=== PATIENT | male | born 1950 | race Caucasian/White ===

== ENCOUNTER 2018-03-05 09:10 | Outpatient (CLI) | payer OTHER, MEDICARE, SELFPAY ==
--- NOTE | 2018-03-05 09:08 | DI.REPORT_ITS ---
SYMPTOM/DIAGNOSIS: FX F/U LEFT WRIST: PA and lateral views were performed. Comparison is made with 12 February 2018 The splint has been removed. There has been no change in alignment of the previously noted comminuted intra-articular fracture of the distal radius and ulnar styloid fracture. There has been continued healing.
== END 2018-03-05 09:11 ==
PROVIDERS: Visit Provider Physician Assistant Surgical
DX: S52.512D Displaced fracture of left radial styloid process, subsequent encounter for closed fracture with routine healing (principal); S52.612D Displaced fracture of left ulna styloid process, subsequent encounter for closed fracture with routine healing
CPT/HCPCS: 73100

== ENCOUNTER 2018-04-08 16:33 | Outpatient (CLI) | payer OTHER, SELFPAY ==
--- NOTE | 2018-04-04 09:28 | DI.RAD_ITS ---
SYMPTOM/DIAGNOSIS: F/U FRACTURES LEFT WRIST: Two views. Comparison is made with 03/05/18. There has been continued healing of the intra-articular fracture of the distal left radius. The fracture lines appear less well visualized. The ulnar styloid process fracture appears stable. No new fractures or dislocations are seen. The bones appear osteopenic likely from decreased use. The soft tissues are unremarkable. IMPRESSION: Continued healing of the distal left radial and ulnar fractures.
== END 2018-04-08 16:53 ==
PROVIDERS: Visit Provider Orthopaedic Surgery
DX: S52.512D Displaced fracture of left radial styloid process, subsequent encounter for closed fracture with routine healing (principal); S52.612D Displaced fracture of left ulna styloid process, subsequent encounter for closed fracture with routine healing
CPT/HCPCS: 73100

== ENCOUNTER 2018-05-16 09:48 | Outpatient (CLI) | payer OTHER, SELFPAY ==
--- NOTE | 2018-05-16 09:42 | DI.RAD_ITS ---
SYMPTOM/DIAGNOSIS: F/U FX LEFT WRIST: Two views were obtained. The previously noted healing fractures of the distal radius and ulnar styloid are again seen with no gross interval change in alignment in comparison with examination of 04/04.
== END 2018-05-16 10:08 ==
PROVIDERS: Visit Provider Orthopaedic Surgery
DX: S52.512D Displaced fracture of left radial styloid process, subsequent encounter for closed fracture with routine healing (principal); S52.612D Displaced fracture of left ulna styloid process, subsequent encounter for closed fracture with routine healing
CPT/HCPCS: 73100

== ENCOUNTER 2020-06-21 15:18 | Emergency (ER) | payer MEDICARE, MEDICAID, SELFPAY ==
[2020-06-21 15:24] VITALS: BP 142/81; PULSE 80; RESP 14; TEMP 36.4; O2SAT 98
--- NOTE | 2020-06-21 15:30 | DI.RAD_ITS ---
EXAM: XR HAND LT COMPLETE CLINICAL HISTORY: fall TECHNIQUE: COMPARISON: No exams were available for comparison FINDINGS: Five views were obtained. There are mild degenerative changes of the joints of the hand and wrist. There is no evidence of acute fracture. Note is made of a very prominent ulnar styloid and ulnar plus variance at the wrist. Clinical correl ation requested regarding impingement at this site. IMPRESSION: RADIATION DOSE DELIVERED: Total DLP Total DLP Total DLP
--- NOTE | 2020-06-21 15:46 | W.ED.GENAD ---
Discharge Plan Disposition Patient Disposition: HOME Condition: Improving Discharge Details Clinical Impression: Chin laceration, Closed dislocation of finger of left hand Primary Care Provider: Sarah Castro ED Provider: Zana Rodgers Home Meds and New Rx's Prescriptions: Continued multivitamin with minerals 1 EACH tablet 1 ea PO DAILY RF: 0 Discharge Instructions Instructions: Laceration (ED) Additional Instructions: Leave finger splint in place except for bathing for approximately 2 weeks time. May start to perform gentle range of motion once swelling diminishes. Your x-ray will have a final reading by the radiologist tomorrow. The sutures, 3, in your chin will slowly dissolve over approximately 7 to 10 days time. Return if you have a fever, foul-smelling discharge from the wound, or any other acute concerns. You may remove the Band-Aid tomorrow and leave the wound to open air. Medical Decision Making 69-year-old male who slipped and fell on ice at home. He lacerated his right stuart on the railing of the steps, landed on his bottom and struck his hand with deformity of the long finger which he states felt dislocated in which he relocated at home. Now with small right chin laceration, left long finger ecchymosis and swelling. No loss of conscious. Denies neck/chest/abdomen pain or other injury reviewed. Chin laceration anesthetized, prepped and draped in standard sterile fashion and closed with 3 absorbable sutures. Patient referred for x-ray of the hand which does not reveal fracture. He likely did dislocate and was able to relocate the joint on his own. Of placement of finger splint for 2 to 3 weeks. He understands homecare as well as return precautions. HPI General Mode of arrival: ambulatory. Date/Time Provider Initiated Documentation: 06/21/20 15:21. Limitations to Documentation: no limitations. Information obtained by: patient. History of Present Illness 69 year old M presents to the emergency department with the chief complaint of L hand injury, R chin laceration, described as moderate, Quality is described as dull, and is localized to the left and upper extremity. Patient reports no radiation. Patient started experiencing this minute(s) and it has been constant. No relieving factors improve symptom(s), No exacerbating factors reported . Patient notes no other symptoms.; denies syncope. Patient did receive the following treatments prior to arrival, none Related Data Home Medications Medication Instructions Recorded Confirmed multivitamin with minerals 1 ea PO DAILY 02/23/16 06/21/20 Allergies Allergy/AdvReac Type Severity Reaction Status Date / Time No Known Allergies Allergy Verified 06/12/18 09:25 General Stated Complaint: Orthopedic ALDEN: 3 Review of Systems Narrative: 6 systems reviewed and otherwise neg [facility] Medical History (Updated 06/21/20 @ 16:09 by Zana Rodgers MD) Dry mouth Palpitations Varicose veins of right lower extremity Surgical History L foot toe rectal polyp Family History Mother Alcohol abuse Churg-Aliyah syndrome Father Family history of colon cancer requiring screening colonoscopy CAD (coronary artery disease) Social History Smoking/Tobacco Use Status: Never Smoking risk assessment performed?: Yes Alcohol Intake: never Drug use: Never Substance use type: does not use Do you feel safe at home: Yes Do you feel safe in your relationship?: Yes Exam Narrative Exam Narrative: GEN: awake, alert, oriented 3. Pleasant, well groomed, interactive. HEAD: Normocephalic, atraumatic ENT: Mucous membranes moist, R chin laceration 1cm, no loose teeth, no anesthesia. EYES: PERRL, EOMI NECK: Full ROM, no GRACE, no menigismus, nontender CHEST/RESP: Nontender, clear to auscultation bilateral, no wheeze/rhonchi/rales CARDIOVASCULAR: RRR, no murmur, rub brynn. 2+ Rad pulse bilateral ABDOMEN: Soft, nontender, no mass. +Bowel sounds EXT: Full ROM, no rash. L long finger swollen primarily middle phalanx with ecchymosis, ROM intact but limited by pain, normal distal cap refill and sensation Neuro: Grossly normal neurologic exam, conversant, interactive. Psych: Speech fluent, thoughts congruent, affect normal Course Vital Signs Vital signs: Vital Signs Temperature 36.4 C L 06/21/20 15:24 Pulse 80 06/21/20 15:24 Respiratory Rate 14 06/21/20 15:24 Blood Pressure 142/81 H 06/21/20 15:24 Pulse Oximetry 98 06/21/20 15:24 Temperature 36.4 C L 06/21/20 15:24 Temperature Source Skin 06/21/20 15:24 Pulse 80 06/21/20 15:24 Respiratory Rate 14 06/21/20 15:24 Respiratory Effort Non-Labored 06/21/20 15:33 Blood Pressure 142/81 H 06/21/20 15:24 Blood Pressure Position Sitting 06/21/20 15:24 Pulse Oximetry 98 06/21/20 15:24 Oxygen Delivery Method Room Air 06/21/20 15:24 Oxygen Flow Rate 0 06/21/20 15:24 Pain Level 1 06/21/20 15:24 Procedures Laceration Laceration 1: Site: face Side (If applicable): right Size (cm): 1 Description: linear Depth: simple, single layer Local Anesthetic: Lidocaine 1% Amount of anesthesia used (mL): 1 Pre-repair: wound explored and deep structures intact Skin layer closed with: vicryl Size (cm): 5-0 Number of sutures: 3
== END 2020-06-21 16:19 | disposition home or self-care (01) ==
PROVIDERS: Emergency Provider Emergency Medicine; PCP Physician Assistant
DX: S01.81XA Laceration without foreign body of other part of head, initial encounter (principal); S63.253A Unspecified dislocation of left middle finger, initial encounter; W00.1XXA Fall from stairs and steps due to ice and snow, initial encounter
CPT/HCPCS: 12011; 99281; 73130

== ENCOUNTER → 2020-12-02 13:51 | Outpatient (BNVA) | payer MEDICARE, MEDICAID, SELFPAY | PROVIDERS: PCP Physician Assistant; Referring Provider Physician Assistant; Visit Provider Urology | DX: R97.20 Elevated prostate specific antigen [PSA] (principal); N40.1 Benign prostatic hyperplasia with lower urinary tract symptoms; R35.1 Nocturia; R39.15 Urgency of urination | CPT/HCPCS: 99204; 99215; G2212 ==

== ENCOUNTER → 2020-12-09 14:23 | Outpatient (BNVA) | payer MEDICARE, MEDICAID, SELFPAY | PROVIDERS: PCP Physician Assistant; Referring Provider Physician Assistant; Visit Provider Physical Therapy Assistant | DX: Z12.11 Encounter for screening for malignant neoplasm of colon (principal); Z80.0 Family history of malignant neoplasm of digestive organs ==

== ENCOUNTER 2021-01-26 02:12 | Outpatient (CLI) | payer MEDICARE, SELFPAY ==
[2021-01-26 11:08] LABS: Source Nasal/Nares
[2021-01-26 13:31] LABS: COVID-19 PCR Negative (Negative)
== END 2021-01-26 02:13 | disposition home or self-care (01) ==
LOC: LBO 02:12
PROVIDERS: PCP Physician Assistant; Visit Provider Surgery
DX: Z20.822 Contact with and (suspected) exposure to COVID-19 (principal); Z01.818 Encounter for other preprocedural examination
CPT/HCPCS: 87635

== ENCOUNTER 2021-01-28 06:45 | Day surgery (SDC) | payer MEDICARE, MEDICAID, SELFPAY ==
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
--- NOTE | 2021-01-28 06:00 | RT.EKG_ITS ---
APPROVED REPORT Exam: Resting ECG Reason for Exam: brugada syndrome Patient Location: O HR:84 bpm ECG Measurements Heart Rate 84 AXIS SD 141 P 76 QRSd 89 QRS -29 QT 354 T 72 QTc 408 Conclusion Sinus rhythm...normal P axis, V-rate 60- 99 Atrial premature complexes...SV complexes w/ short R-R intvls
[2021-01-28 06:58] VITALS: BP 134/89; PULSE 98; RESP 16; TEMP 36.7; O2SAT 100
[2021-01-28] MEDS: Lactated Ringers 1,000 ML 80 ML IV (07:33)
[2021-01-28 07:35] LABS: Abs Immature Grans 0.02 10^3/uL (0.0-0.06); Absolute Basophil Count 0.03 10^3/uL (0.0-0.2); Absolute Eosinophil Count 0.13 10^3/uL (0.0-0.7); Absolute Lymphocyte Count 1.08 10^3/uL (1.2-3.4); Absolute Monocyte Count 0.51 10^3/uL (0.1-0.8); Absolute Neutrophil Count 2.61 10^3/uL (1.2-6.7); Basophils % 0.7; HCT 47.1 % (40.0-50.0); HGB 15.8 g/dL (13.5-17.5); Immature Grans % 0.5; Lymphocytes % 24.7; MCH 30.6 pg (27.0-33.0); MCHC 33.5 % (32.0-36.0); MCV 91.3 fL (80-95); MPV 9.8 fL (8.0-11.0); Monocytes % 11.6; Neutrophils % 59.5; Nucleated RBC 0 %; Platelet Count 229 10^3/uL (130-400); RBC 5.16 10^6/uL (4.36-5.78); RDW 12.1 % (11.8-14.1); RDW-SD 41.1 fL; WBC 4.38 10^3/uL (4.4-10.8)
--- NOTE | 2021-01-28 07:53 | ANES.PREOP_ITS ---
General Info Date of Service Date Performed: 01/28/21 Height: 5 ft 9 in Weight: 68.2 kg Body Mass Index (BMI): 22.1 Surgical Procedure: Operation Date: 01/28/21 08:05 Proposed Procedures Side Surgeon jayla Reilly, DO Meds Allergies and Home Medications Allergies Allergy/AdvReac Type Severity Reaction Status Date / Time amoxicillin [From Augmentin] Allergy Intermediate Skin Rash Unverified 01/28/21 06:55 clavulanic acid Allergy Intermediate Skin Rash Unverified 01/28/21 06:55 [From Augmentin] Home Medication Medication Instructions Recorded multivitamin with minerals 1 ea PO DAILY 02/23/16 cholecalciferol (vitamin D3) 25 25 mcg PO DAILY 12/03/20 mcg (1,000 unit) capsule Ca carb-Ca gluc-Mg ox-Mg gluco 1 tab PO DAILY 01/27/21 [Calcium Magnesium] activated charcoal 500 mg PO DAILY 01/27/21 omega-3 fatty acids [Fish Oil] 1 cap PO DAILY 01/27/21 thyroid 65 mg PO DAILY 01/27/21 Current Visit Medications: Current Medications Generic Name Dose Route Start Last Admin Trade Name Freq PRN Reason Stop Dose Admin Hyoscyamine Sulfate 0.125 mg 01/27/21 22:20 Hyoscyamine 0.125 Mg Sl/Oral/Chew SL DIRECTED PRN Ringer's Solution 1,000 mls @ 80 mls/hr 01/28/21 06:00 01/28/21 07:33 IV 02/26/21 23:59 80 mls/hr INFUSION SONIA Administration IV Miscellaneous Supplies 1 each 01/28/21 06:00 Iv Access IV 02/26/21 23:59 DIRECTED SONIA Ondansetron HCl 4 mg 01/27/21 22:20 Ondansetron 4 Mg/2 Ml Vial IVP Q4H PRN PRN Nausea / Vomiting Sodium Chloride 0 ml 01/28/21 06:00 Normal Saline Flush 10 Ml Syr IV 02/26/21 23:59 PRN PRN Sodium Chloride 0 ml 01/28/21 06:00 Normal Saline 10 Ml Vial IJ 02/26/21 23:59 DIRECTED PRN Sterile Water 0 ml 01/28/21 06:00 Water,Injection,Sterile 10 Ml Vial IJ 02/26/21 23:59 DIRECTED PRN PFSH Active Problems Active Problems: Problem Status Onset Code Brugada syndrome 10/19/17 I49.8 Altered bowel habits R19.4 Abnormal EKG R94.31 Screening for cardiovascular condition Z13.6 Lower urinary tract symptoms (LUTS) R39.9 Elevated PSA R97.20 Medical History Medical History Brugada syndrome Pt. states 2018 pcp wanted him to get a stress test due to some irregularity in an ECHO, the stress test was stopped and he f/u with cardiology which Dr. Sandoval told him he had a very mild case of it and every 2-3 years should see a regional facilities manager, and he is currently due to be seen Dry mouth Elevated PSA Lower urinary tract symptoms (LUTS) Palpitations Skin rash Stress Varicose veins of right lower extremity Surgical History Surgical History H/O colonoscopy (~2009) no polyps History of colonoscopy (~2015) L foot toe rectal polyp Tobacco Smoking/Tobacco Use Status: Never Alcohol Alcohol Intake: never Substance Use Substance use: Never Substance use type: does not use Vital Signs and Lab Results Vital Signs Most Recent Vital Signs in EMR: Most Recent Vital Signs Temp Pulse Resp BP Pulse Ox 36.7 C 98 H 16 134/89 100 01/28/21 06:58 01/28/21 06:58 01/28/21 06:58 01/28/21 06:58 01/28/21 06:58 Lab Results Result Diagrams: 01/28/21 07:28 01/28/21 07:28 Blood Type / Crossmatch: No Data to Display Complete Blood Count: White Blood Count 4.38 10^3/uL (4.4-10.8) L 01/28/21 07:28 01/28/21 Red Blood Count 5.16 10^6/uL (4.36-5.78) 01/28/21 07:28 01/28/21 Hemoglobin 15.8 g/dL (13.5-17.5) 01/28/21 07:28 01/28/21 Hematocrit 47.1 % (40.0-50.0) 01/28/21 07:28 01/28/21 Platelet Count 229 10^3/uL (130-400) 01/28/21 07:28 01/28/21 Complete Metabolic Panel: Sodium Level Pending 01/28/21 07:01/28/21 Potassium Level Pending 01/28/21 07:01/28/21 Chloride Level Pending 01/28/21 07:28 01/28/21 Carbon Dioxide Level Pending 01/28/21 07:01/28/21 Blood Urea Nitrogen Pending 01/28/21 07:01/28/21 Creatinine Pending 01/28/21 07:01/28/21 Estimated GFR/1.73 m2 Pending 01/28/21 07:28 01/28/21 Calcium Level Pending 01/28/21 07:01/28/21 Albumin Pending 01/28/21 07:01/28/21 Glucose Level Pending 01/28/21 07:28 01/28/21 Liver Function Panel: Alanine Aminotransferase (ALT/SGPT) Pending 01/28/21 07:01/28/21 Aspartate Amino Transf (AST/SGOT) Pending 01/28/21 07:01/28/21 Coagulation Panel: No Data to Display Cardiac Panel: No Data to Display Arterial Blood Gas: No Data to Display Venous Blood Gas: No Data to Display Pancreas Panel: No Data to Display Thyroid Panel: No Data to Display Infectious Disease: Coronavirus (COVID-19)(PCR) Negative (Negative) 01/26/21 08:31 01/26/21 Coronavirus 2019 Source Nasal/Nares 01/26/21 08:31 01/26/21 Blood Cultures: No Data to Display Toxicology Panel: No Data to Display Imaging and Studies Imaging and Studies Echocardiogram Summary: Summary: 1. Left ventricle: The cavity size was normal. Wall thickness was at the upper limits of normal. Systolic function was normal. The estimated ejection fraction was 55-60%. Wall motion was normal; there were no regional wall motion abnormalities. 2. Right ventricle: The cavity size was normal. Systolic function was normal. 3. Inferior vena cava: The vessel was patent and normal in size. The respirophasic diameter changes were in the normal range (greater than or equal to 50%), consistent with normal central venous pressure. 10/31/17 Anesthesia Assessment and Plan Anesthesia History Personal History: No History of Anesthesia Complications Family History: No Family History of Anesthesia Complications Exercise Tolerance Exercise Tolerance: Metabolic Equivalents>4 Pertinent Negatives Pertinent Negatives: No Symptoms of GERD Cardiac & Pulmonary Exam Cardiac Exam: Normal S1/S2 Heart Sounds Pulmonary Exam: Clear Bilateral Breath Sounds Airway Exam Known Difficult Airway: No Mallampati Class: 1 Mouth Opening: Normal (> 3cm) Thyromental Distance: Greater than 3 cm Neck Range of Motion: Full ROM Neck Circumference: Normal Teeth Condition: Normal Dentition ASA Classification ASA Score: ASA 2 Emergency Case?: No NPO Status NPO Status: NPO Clears >2 hours, Solids >8 hours Anesthesia Plan Resuscitation Status: Full Code Anesthesia Technique: General Anesthesia Airway Planned: Natural Airway Monitors Used: Standard Monitors
[2021-01-28 07:56] VITALS: BMI 22.1
[2021-01-28 08:16] LABS: ALT 26 U/L (16-63); AST 16 U/L (15-37); Albumin 3.5 g/dL (3.4-5.0); Alkaline Phosphatase 58 U/L (46-116); Anion Gap 8.7 mmol/L (3-11); BUN 10 mg/dL (7-18); Bilirubin, Total 0.7 mg/dL (0.2-1.0); CO2 28.3 mmol/L (21.0-32.0); CREATININE 1.1 mg/dL (0.70-1.30); Calcium 9.1 mg/dL (8.5-10.1); Chloride 103 mmol/L (98-107); Glucose 126 mg/dL (74-106); Potassium 4.5 mmol/L (3.5-5.1); Sodium 140 mmol/L (136-145)
--- NOTE | 2021-01-28 09:34 | BOWEL_PTH ---
PATIENT: Dario Perry LOC: [facility] U#:[id number] AGE/SX: 70/M ROOM: RE01/28/[address]: Mayra Reilly : 1950 BED: DIS: 01/28/2021 SPEC #: [id number] RECD: 01/28/21 10:26 STATUS: ADRIA REQ #: [id number] SIMÓN: 01/28/21 09:[address]: Mayra Reilly DEPT: Surgical Specimen RECD BY: Madyson Ansari ENTERED: 01/28/21 10:28 SP TYPE: Bowel OTHR DR: Sarah Castro NP Tissues: 1 - BIOPSY BOWEL 2 - BIOPSY BOWEL 3 - BIOPSY BOWEL Procedures: GROSS AND MICRO LEVEL 4 Comments: [id number]
--- NOTE | 2021-01-28 10:13 | W.COLOREPORT ---
Date of service: 01/28/21 Time of Service: 10:13 Colonoscopy Report Date of procedure: 01/28/21 Pre-op diagnosis general: change in bowel habits Post-op diagnosis procedure note: other (diverticula/polyps/anal mass ) Surgeon: Mayra Reilly Anesthesia Type: General:No Airway Estimated blood loss (mL): 1 Pathology: other Complications: None Disposition: same day Prep: Miralax/Dulcolax Retraction Time: 12 mins Procedure Description: After informed consent was obtained the patient was taken to the procedure room and placed in a left decubitous position. Monitors were applied and a time out was done. The patients name, date of , procedure, allergies to medications and metal in their body was reviewed. The patient was then sedated. Once sedated and comfortable a rectal exam was done. External exam was normal. Internal exam revealed a normal sphincter tone and a palpable mass- 1x1/4 . It is on a very long thin stock. It seems to be emanating from the anal region- a remnant of a hemorrhoid or hypertrophied papillae vs other. The scope was then introduced and retrofelexed. The scope was then advanced to the cecum w/ difficulty. He has a very sharp turn at the splenic flexure. We did have to reposition him to the supine position in order to maneuver around this corner. The TI and appendiceal orifice were identified. The prep was good. The scope was then slowly retracted over 12 minutes back into the rectum. He does have moderate diverticular disease confined to the sigmoid colon- there is no signs of bleeding or infection. He has x2 polyps, that are each 5 mm in size These are flat. They are each removed with one bite of a cold forcept. The polyps are at 30cm and 20 cm respectively. At the anal verge- he has a polyp vs hypertrophied papilla. Is approximately one x1/4 inch. This is removed with a hot polypectomy snare. All specimens are retrieved and no bleeding noted. The scope was removed and the patient was woken up and taken back to Same day surgery in stable condition. The patient tolerated the procedure well and there were no immediate complications. Follow up: The patient should follow up in 5-7 years -path pd, unless they develop changes in bowel habits or other new gastrointestinal complaints.
--- NOTE | 2021-01-28 10:17 | W.ANESPOSTOP ---
Postoperative Evaluation Date, Time and Location Date Performed: 01/28/21 Time Performed: 10:17 Patient Location: Day Surgery Unit Vital Signs Most Recent Imported Vital Signs: Most Recent Vital Signs Temp Pulse Resp BP Pulse Ox 36.7 C 98 H 16 134/89 100 01/28/21 06:58 01/28/21 06:58 01/28/21 06:58 01/28/21 06:58 01/28/21 06:58 Most Recent Manually Entered Vital Signs: Adult Blood Pressure: 108/73 Heart Rate: 62 Respirations: 12 Oxygen Saturation (%): 99 Temperature (C): 36 C Pain Score (0-10 Scale): 0 Pain Score Most Recent Pain Score: Most Recent Pain Score Pain Level 0 01/28/21 06:58 Assessment Mental Status: Arousable with meaningful communication Airway and Respiratory Function: Patent airway with normal (patient baseline) respiratory exam Cardiovascular Function: Hemodynamically Stable Hydration Status: Adequately Hydrated Nausea & Vomiting: No Nausea or Vomiting Pain: Pt. Denies Any Pain Peripheral Nerve Block: Patient did not receive a nerve block
[2021-01-28 10:19] VITALS: BP 108/73; PULSE 62; RESP 12; TEMPC 36; O2SAT 99
--- NOTE | 2021-01-28 10:26 | W.PM.DSUDISC ---
Discharge Plan Disposition Patient Disposition: HOME Condition: Good Discharge Details Reason For Visit: SCREENING + FM HX Attending Provider: Mayra Reilly Primary Care Provider: Sarah Castro Home Meds and New Rx's Prescriptions: No Action cholecalciferol (vitamin D3) 25 mcg (1,000 unit) capsule 25 mcg PO DAILY RF: 0 multivitamin with minerals 1 EACH tablet 1 ea PO DAILY RF: 0 thyroid 65 mg Tablet 65 mg PO DAILY RF: 0 activated charcoal 250 mg Tablet 500 mg PO DAILY RF: 0 Fish Oil Capsule 1 cap PO DAILY RF: 0 Calcium Magnesium 500 mg calcium -250 mg Tablet 1 tab PO DAILY RF: 0 Discharge Instructions Additional Instructions: [facility] Colonoscopy Post-Op Instructions Instructions for Everyone who is given Anesthesia: For your safety, please do the following for the next twenty-four (24) hours: *Do Not operate a motor vehicle (car, truck, motorcycle, etc.) *Do Not drink alcoholic beverages or use any recreational drugs for the first 24 hours or while taking pain medications. The medications in your body may have a reaction that can be dangerous. *Do Not make any important decisions or sign any important papers. Findings: x3 polyps (including anal polyp that was removed) and diverticula -No ASA/NSADI's for 72 hrs -hold Fish oil/Vit E or D for 5 days Follow up: My office will send a letter in 2 to 3 weeks with results of the polyps and when to repeat your colonoscopy. 1. No lifting over 20 pounds or strenuous activity for the first 24 hours after your procedure. After 24 hours there are no restrictions on your activity but you may feel fatigued for a few days. 2. After you arrive home you may have a light meal and return to your normal diet as you can tolerate it without feeling sick to your stomach. 3. You may have a bloated, gaseous feeling in your belly (abdomen) after a colonoscopy. Passing gas and belching will help. Walking or lying down on your left side with your knees flexed may relieve the discomfort. You may experience spasms in the rectal muscles. This is normal after surgery and last for about two weeks. They can become more intense with bowel movements. The best remedy is to soak in a bathtub of plain warm water- no Epsom salts, essential oil or soap. It takes about 10 minutes further the spasm to stop. You may want to do this after BM as well. You may also notice some bleeding/discharge w/ BM for 2 weeks. Call the office at [phone] (Office) or [phone] (Hospital) right away if you notice any of the following: a.Vomiting of blood or ?coffee ground stools?. b.Rectal bleeding 1Tbsp, blood clots or continuous bleeding. c.Severe belly (abdominal) pain. d.A hard distended belly (abdomen) and an inability to pass gas. 4. Please don?t expect to have a normal BM (bowel movement) for 2-3 days after your procedure. 5. If there are questions regarding the findings of your procedure, please contact your doctor 6. If you are unable to contact your doctor with a problem, contact the hospital at [phone]. 7. Continue all your regular medications unless directed otherwise. I understand the above instructions and have no questions. Signature of Patient or Adult Escort Name of Responsible Adult Escort Signature of Nurse Date/Time DIVERTICULAR DISEASE OVERVIEW ? A diverticulum is a pouch-like structure that can form through points of weakness in the muscular wall of the colon (ie, at points where blood vessels pass through the wall). Diverticulosis affects men and women equally. The risk of diverticular disease increases with age. It occurs throughout the world but is seen more commonly in developed countries. WHAT IS DIVERTICULAR DISEASE? Diverticulosis ? Diverticulosis merely describes the presence of diverticula. Diverticulosis is often found during a test done for other reasons, such as flexible sigmoidoscopy, colonoscopy, or barium enema. Most people with diverticulosis have no symptoms and will remain symptom free for the rest of their lives. A person with diverticulosis may have diverticulitis, or diverticular bleeding. Diverticulitis ? Inflammation of a diverticulum (diverticulitis) occurs when there is thinning and breakdown of the diverticular wall. This may be caused by increased pressure within the colon or by hardened particles of stool, which can become lodged within the diverticulum. The symptoms of diverticulitis depend upon the degree of inflammation present. The most common symptom is pain in the left lower abdomen. Other symptoms can include nausea and vomiting, constipation, diarrhea, and urinary symptoms such as pain or burning when urinating or the frequent need to urinate. Diverticulitis is divided into simple and complicated forms. ?Simple diverticulitis, which accounts for 75 percent of cases, is not associated with complications and typically responds to medical treatment without surgery. ?Complicated diverticulitis occurs in 25 percent of cases and usually requires surgery. Complications associated with diverticulitis can include the following: ?Abscess ? a localized collection of pus ?Fistula ? an abnormal tract between two areas that are not normally connected (eg, bowel and bladder) ?Obstruction ? a blockage of the colon ?Peritonitis ? infection involving the space around the abdominal organ ?Sepsis ? overwhelming body-wide infection that can lead to failure of multiple organs Diverticular bleeding ? Diverticular bleeding occurs when a small artery located within a diverticulum is eroded and bleeds into the colon. Diverticular bleeding usually causes painless bleeding from the rectum. In approximately 50 percent of cases, the person will see maroon or bright red blood with bowel movements. Is bleeding with a bowel movement normal? ? It is not normal to see blood in a bowel movement; this can be a sign of several conditions, most of which are not serious (eg, hemorrhoids) but some of which are serious and require immediate treatment. Anyone who sees blood after a bowel movement should consult with their healthcare provider to determine if further testing or evaluation is needed. DIVERTICULOSIS AND DIVERTICULITIS DIAGNOSIS ? Diverticulosis is often found during tests performed for other reasons. ?Barium enema ? This is an x-ray study that uses barium in an enema to view the outline of the lower intestinal tract. This is an older test and has been largely replaced by computed tomography (CT) scan. ?Flexible sigmoidoscopy ? This is an examination of the inside of the sigmoid colon with a thin, flexible tube that contains a camera. ?Colonoscopy ? This is an examination of the inside of the entire colon. ?CT scan ? A CT scan is often used to diagnose diverticulitis and its complications. If diverticulitis (not just diverticulosis) is suspected, the above three tests should not be used because of the risk of perforation. TREATMENT Diverticulosis ? People with diverticulosis who do not have symptoms do not require treatment. However, most clinicians recommend increasing fiber in the diet, which can help to bulk the stools and possibly prevent the development of new diverticula, diverticulitis, or diverticular bleeding. Fiber is not proven to prevent these conditions in all patients but may help to control recurrent episodes in some. Increase fiber ? Fruits and vegetables are a good source of fiber. Fiber content of packaged foods can be calculated by reading the nutrition label. Seeds and nuts ? Patients with diverticular disease have historically been advised to avoid whole pieces of fiber (such as seeds, corn, and nuts) because of concern that these foods could cause an episode of diverticulitis. However, this belief is completely unproven. We do not suggest that patients with diverticulosis avoid seeds, corn, or nuts. Diverticulitis ? Treatment of diverticulitis depends upon how severe your symptoms are. Home treatment ? If you have mild symptoms of diverticulitis (mild abdominal pain, usually left lower abdomen), you can be treated at home with a clear liquid diet and oral antibiotics. However, if you develop one or more of the following signs or symptoms, you should seek immediate medical attention: ?Temperature >100.1?F (38?C) ?Worsening or severe abdominal pain ?An inability to tolerate fluids Hospital treatment ? If you have moderate to severe symptoms, you may be hospitalized for treatment. During this time, you are not allowed to eat or drink; antibiotics and fluids are given into a vein. If you develop an abscess of the colon, you may require drainage of the abscess (usually performed by placing a drainage tube across the abdominal wall) or by surgically opening the affected area. Surgery ? If you develop a generalized infection in the abdomen (peritonitis), you will usually require an emergency operation. A two-part operation may be necessary in some cases. ?The first operation involves removal of the diseased colon and creation of a colostomy. A colostomy is an opening between the colon and the skin, where a bag is attached to collect waste from the intestine. The lower end of the colon is temporarily sewed closed to allow it to heal. ?Approximately three to six months later, a second operation is performed to reconnect the two parts of the colon and close the opening in the skin. You are then able to empty your bowels through the rectum. Sometimes patients require up to a year to recover from the first operation, depending on how sick they were. In non-emergency situations, the diseased area of the colon can be removed and the two ends of the colon can be reconnected in one operation, without the need for a colostomy. Surgery versus medical therapy ? An operation to remove the diseased area of the colon may be necessary if you do not improve with medical therapy. After an episode of uncomplicated diverticulitis, elective surgery is generally not required as the risk of another attack or requiring emergency surgery is low. However, patients with persistent symptoms attributable to diverticulitis, a history of complicated diverticulitis, or a compromised immune system should be evaluated for possible surgery to prevent another attack. In such patients, another attack has been associated with a higher risk of complications or . Of course, the decision will also depend in part upon your other medical conditions and ability to undergo surgery. In many cases, an elective operation can be performed laparoscopically, using small incisions, rather than the typical vertical (up and down) abdominal incision. Laparoscopic surgery usually allows you to recover more quickly and shortens the hospital stay. After diverticulitis resolves ? After an episode of diverticulitis resolves, if you have not had a recent colonoscopy, the entire length of the colon should be evaluated to determine the extent of disease and to rule out the presence of abnormal lesions such as polyps or cancer. Recommended tests include colonoscopy, barium enema and sigmoidoscopy, or CT colonography. Diverticular bleeding ? Most cases of diverticular bleeding resolve on their own. However, some people will need further testing or treatment to stop bleeding, which may include a colonoscopy, angiography (a treatment that blocks off the bleeding artery), bleeding scan, or surgery. DIVERTICULAR DISEASE PROGNOSIS Diverticulosis ? Over time, diverticulosis may cause no problems or it may cause episodes of bleeding and/or diverticulitis. Approximately 15 to 25 percent of people with diverticulosis will develop diverticulitis, while 5 to 15 percent will develop diverticular bleeding. Diverticulitis ? Approximately 85 percent of people with uncomplicated diverticulitis will respond to medical treatment, while approximately 15 percent of patients will need an operation. After successful treatment for a first attack of diverticulitis, one-third of patients will remain asymptomatic, one-third will have episodic cramps without diverticulitis, and one-third will go on to have a second attack of diverticulitis. The prognosis tends to remain similar following a second attack of diverticulitis. Only 10 percent of people remain symptom-free after a second attack. Subsequent attacks tend to be of similar severity, not increasing in severity as previously believed. High Fiber Diet What is Dietary Fiber? All fiber comes from plants, bushes, penny or trees. Of course, the ones that we eat provide us with fruits, vegetables and grains. There are many different types of fiber but the three that are most important to the health of the body are: Insoluble Fiber This fiber does not dissolve in water, nor is it fermented by the bacteria residing in the colon. Rather, it retains water and in so doing, helps to promote a larger, bulkier and more regular bowel activity. This, in turn, may be important in preventing disorder such as diverticulosis and hemorrhoids, and in sweeping out certain toxins and cancer causing carcinogens. Sources of insoluble fiber are: ? whole grain wheat and other whole grains ? corn bran, including popcorn, unflavored and unsweetened ? nuts and seeds ? potatoes and the skins from most fruits from trees such as apples, bananas and avocados ? many green vegetables such as green beans, zucchini, celery and cauliflower ? some fruit plants such as tomatoes and kiwi Soluble Fiber These fibers are fermented or used by the colon bacteria as a food source or nourishment. When these good bacteria grow and thrive, many health benefits occur in both the colon and the body. Soluble fiber is present in some degree in most edible plant foods, but the ones with the most soluble fiber include: ? legumes such as peas and most beans, including soybeans ? oats, rye and barley ? many fruits such as berries, plums, apples bananas and pears ? certain vegetables such as broccoli and carrots ? most root vegetables ? psyllium husk supplement products Prebiotic Soluble Fiber These are relatively newly discovered soluble plant fibers. The technical name for this fiber is inulin or fructan. When these soluble fibers are fermented by the good colon bacteria, some further significant health benefits have been shown to occur by research in many medical centers. These soluble prebiotic fibers occur in significant amounts in: ? asparagus ? yams ? onions ? garlic ? bananas ? leeks ? agave ? chicory and other root vegetables such as [place] artichokes ? wheat, rye and barley (smaller amounts) Benefits of a High Fiber Diet The health benefits of a high fiber diet, consumed on a regular basis and reaching recommended amounts (below), are now fairly well-defined. There are some additional benefits in the early research stage with the prebiotic soluble fibers. What is now known regarding a high fiber diet include: Bowel Regularity A high fiber diet promotes regularity with a softer, bulkier and regular stool pattern. This decreases the chance of hemorrhoids, diverticulosis and perhaps colon cancer. Cholesterol and Reduced Triglycerides The soluble fibers are the ones that will reduce cholesterol levels when used on a regular basis. Psyllium husk and prebiotic soluble fiber will also reduce cholesterol. They may also reduce the incidence of coronary heart disease. Oats, flax seeds and legumes or beans are the recommended fibers. Colon Polyps and Cancer It is still not certain if a high fiber diet helps prevent colon cancer. Considerable research suggests that this may occur. Certainly it makes sense to increase regularity and so speed the movement of cancer causing carcinogens through the bowel. In addition, reducing a heavy meat diet reduces the bile flow from the liver in a favorable way. This, too, reduces the amount of carcinogens that reach and are manufactured in the colon. Finally, a high fiber diet, including prebiotic soluble fiber, increases the integrity and health of the wall of the colon. The risk of cancer may be reduced. Colon Wall Integrity A high fiber diet changes the bacterial makeup of the colon toward a more favorable balance. For instance, it is known that those people with obesity, diabetes type 2 and inflammatory bowel disease have a predominance of bad bacteria in the colon. This, in turn, may render the bowel wall weak and allow bacteria and, indeed, even toxins to seep through. A high fiber diet with a modest reduction in animal and meat products may return the bacterial makeup to a more positive balance. This, in particular, has been seen when the soluble fiber prebiotics are added to the diet. Blood Sugar Soluble fiber such as in legumes (beans), oats and in prebiotic fibers slows the absorption of blood sugar and so helps regulate the sugar in the blood. Insoluble fiber on a regular basis is associated with reduced risk of type 2 diabetes. Weight Loss High fiber diets are more filling and give a sense of fullness sooner than an animal and meat based diet does. In addition, the soluble prebiotic fibers have been shown to turn off the hunger hormones produced in the wall of the gut and to increase the hormones that give a sense of fullness. Those hormones are made in the wall of the gut. New medical research has shown that the bacterial makeup in the colon in overweight people is abnormal to the extent that they manufacture and absorb almost twice the number of calories through the colon wall as do normals. Prebiotic fibers (below) will help change this hormonal balancein a favorable way. Bacteria and the Function of the Colon The colon finishes the digestive process. Hopefully, the waste products move through in a nice regular manner. Insoluble fibers help this process by retaining water and so producing a bulkier, softer stool, which is easy to pass. The additional role of the colon is to provide a home for an enormous number of micro-organisms, mostly bacteria. Recent research has shown that there are over 1,000 species of bacteria with a total bacterial count ten times the number of cells in the body. These bacteria play a major role in keeping the colon wall itself healthy. In addition, these good bacteria produce a very strong immune system for the body. They significantly increase calcium absorption and bone density. They provide other documented benefits. It is the soluble fibers in the diet that are so effective in stimulating the growth of good colon bacteria. How Much is Enough? The amount of fiber in food is measured in grams. National nutritional authorities recommend the following amounts of dietary fiber daily. Under Age 50 Over Age 50 Men 38 grams 30 grams Women 25 grams 21 grams For a week or so, it is best to tally the amount of fiber you are consuming. Boxed and packaged foods will have the amount of fiber per serving on the nutrition label. Which Fibers and Which Foods are Best? As noted, healthy fiber is only found in plants. The three major categories are whole grains, fruits and vegetables. Whole Grains Wheat, oats, barley, wild or brown rice, amaranth, buckwheat, bulgur, corn, millet, quinoa, rye, sorghum, teff and triticals. By far, wheat, oats and wild or brown rice are most common. Always buy whole grain products. White bread, baked goods and rolls almost always are made from wheat flour. Wheat flour is white because most of the fiber, vitamins and other nutrients have been removed. Try not buy enriched grains. What this means is that simple white flour has had vitamins added to it by the special forces engineer sergeant. The word, enriched, implies a good and healthy product. On the contrary, enriched means that most of the fiber has been removed and a few vitamins added. Fruits Fruits come from trees such as apple and pear or from bushes or penny. You should eat a wide variety of fruits, preferably with every meal. In many cases, the skin of a fruit such as apple will contain much of the insoluble fiber while the pulp contains most of the soluble fiber. To the extent possible, buy organic fruits as these will have little or no pesticides. Always wash fruit. Vegetables Eat a wide variety of vegetables. They should be a mainstay of lunch and dinners. Frozen vegetables retain as much nutrition and fiber as fresh vegetables. As with fruit, try to buy organic to reduce any residual pesticide ingestion. Wash fresh vegetables thoroughly. Cruciferous vegetables such as broccoli, [place] sprouts and cauliflower contain certain chemicals such as sulforaphane. This substance has very strong anti-cancer properties and should be eaten frequently. Legumes, Beans, Peas and Soybeans These vegetables have plenty of soluble fiber and should be part of a varied vegetable intake. Beans, in particular, contain a certain type of fiber that may lead to harmless gas or bloating. Nuts and Seeds These are rich sources of fiber and are a good substitute for sweets such as candies and baked sweet goods. While nuts and seeds are rich in fiber, they also contain vegetable fat and so can and do add calories. Read the Labels As noted, fresh and frozen foods are usually better. They have good nutrition and few, if any, chemicals added to them. When buying packaged foods and, in particular grains, look for three things: ? The first word on the label should be whole, such as whole wheat or whole grain. ? Check out the calories and the amount of fiber in a serving. ? How many and what other additives or chemicals are added. Fewer is always better. Do you know what each additive does? Some are added not for the benefit of the buyer liaison but rather for manufacturers. These could and do include sugar, artificial flavor, chemicals to prevent oxidation and spoilage, emulsifiers to blend the product. You have to be a obedience trainer. Fiber Facts, Nuggets and Pearls ? For breakfast you can easily get the day started well by using a high fiber, whole grain cereal. Check the labels. Add fruit such as blueberries and bananas. If you are an egg eater, use whole wheat or grain toast. Adding wheat germ gives you a good fiber kick. ? Always use whole grain or wheat with rolls and sandwiches. Does your fast food store not have them? Perhaps you look elsewhere. Eating an occasional black downing or veggie burger provides variety. ? Snacks should consist of fruit and/or nuts. While nuts are loaded with fiber, they are an energy rich food, meaning they have a lot of calories in a small packet. ? Fruit juices should contain pulp. Clear juices such as clear orange, pear or apple juice contain little fiber and have a lot of fructose. Prune juice is usually high in fiber. ? Homemade soups ? adding fresh or frozen vegetables to a chicken or vegetable stock is a good way to start homemade soup. ? Salads ? adding cooked and then chilled vegetables provide great flavoring to almost any salad. Remember, a gordon salad has lots of cooked corn in it. Small slices of apples or oranges and nuts such as chopped walnuts or sliced almonds always adds taste, variety and fiber to almost any salad. ? Fruit ? Try to eat fruit of some type with almost every meal. ? Rethink how you place the various foods on your dinner plate. Reducing the portions of the meat or animal food portion to the side with equal or more portions of vegetables, legumes and fruits portion always allows for more fiber. There was never anything magic about making the meat or animal food portion the main part of the dinner plate. Eating from smaller plates can, over time, trick your mind and retirement habit of using a dinner plate. Again, there is nothing magic in an 11, 12, or 13 inch dinner plate. Fiber Supplements There are a variety of fiber supplements available on the food or pharmacy shelves. Psyllium This soluble plant fiber has been used in [place] for over 2,000 years. It is a soluble fiber with mucilage in it. This acts to retain a lot of water and also is fermented by colon bacteria. When 7 grams a day are used, it does lower cholesterol. Metamucil in various forms is psyllium. Methyl Cellulose All the cellulose products come from finely ground wood chips which are then treated in a variety of ways such as boiling in acids. Methyl cellulose is an insoluble fiber which does dissolve in water. It is also an emulsifier, meaning it blends oils and water. Citrucel is methyl cellulose (MC). MC may not be appropriate for Crohn?s disease or ulcerative colitis as several medical studies have shown that certain emulsifiers dissolve the mucous lining of the colon in animals prone to Crohn?s disease. This then allows bacteria to invade the underlying tissue. Inulin Inulin is a soluble prebiotic fiber found in many foods and which are fermented mostly in the left side of the colon. It is available in a supplement as generic inulin and in Fiber Choice. Oligofructose FOS These are also prebiotic fibers. They are fermented very quickly in the right side of the colon. Prebiotin This product is a combination of oligofructose, which feeds the bacteria in the right side of the colon and inulin, which does the same in the left side of the colon. There seems to be a benefit for this particular formula based on medical research. Prebiotic Soluble Fiber These may be the healthiest of all the soluble fibers. They grow in many plants and have had a great deal of research done on them in the last 10-15 years. These fibers are found in asparagus, yams and other root vegetables such as chicory, garlic, onion, leeks and in smaller amounts in wheat. This research has shown the following: ? Increase in good and decrease in bad colon bacteria ? Increase calcium absorption and enhanced bone mass ? Enhanced immune system ? Appetite and weight control by changing the hormone appetite signals to the brain ? May decrease colon cancer incidence ? Reduce or correct a leaky colon Eating a wide variety of plant food up to the recommended amount will likely give you enough prebiotic fiber. Supplements such as Prebiotin can be added to the diet. Short Chain Fatty Acids (SCFA) Some rather remarkable research findings have shown that one of the benefits of ingesting a lot of soluble fiber, in particular the prebiotic ones, results in larger amounts of SCFAs in the colon. These SCFAs are made by the good bacteria in the colon such as Bifidobacter and Lactobacillus. These small molecules have been shown to do the following: ? Enhance the health and integrity of the colon wall ? Provide nourishment for the cells that actually line the colon ? Increases the acidity of the colon which is a very real health benefit ? Stabilize blood sugar for diabetics ? Reduce blood cholesterol and triglyceride ? Significantly enhance immunity ? May be a benefit for Crohn?s disease and ulcerative colitis patients Fiber and Gas Everyone has intestinal gas and that is a good thing. It means that bacteria, hopefully the good ones, are thriving. The normal amount of flatus passed each day depends on sex and what is eaten. The normal number of flatus is 10-20 times a day. When the bacteria that make intestinal gases are growing, it also means that other good bacteria are using the same fibers to grow and produce multiple health benefits, including the production of healthy short-chain fatty acids. These substances are produced quietly in the colon and produce many health-related outcomes. Soluble fiber should always be used in a gradual manner. If too much is consumed at any one time, then excess, but harmless, intestinal gas can occur. People with irritable bowel syndrome are particularly prone to bloating and mild cramping. In this instance, soluble fiber in the diet or supplement should be used in small doses and increased gradually. Finally, prebiotic fibers tend to cause the production of short-chain fatty acids which acidify the colon. This, in turn, reduces or stops the growth of bacteria that make the smelly hydrogen sulfide gases that produce noxious flatus. People who consume many vegetables with prebiotics or take a prebiotic fiber supplement often have non-odoriferous flatus. Fiber and Irritable Bowel Syndrome Irritable bowel syndrome (IBS) is one of the most common disorders of the lower digestive tract. The symptoms of IBS can be quite varied. They can be a mix of several symptoms such as constipation, diarrhea, crampy abdominal discomfort, bloating and gas. An attack of IBS can be triggered by emotional tension and anxiety, poor dietary habits and certain medications. It is now known that infections in the intestine can lead to long-term IBS symptoms. Increased amounts of fiber in the diet can help relieve the symptoms of irritable bowel syndrome by producing soft, bulky stools. This helps to normalize the time it takes for the stool to pass through the colon. Recent medical research with newer techniques has shown some surprising and dramatic findings for IBS patients. Specifically, there is a very significant and abnormal shift of bacteria from those that provide health benefits to those bad bacteria that we really do not want in the gut. The technical name for this bad group of bacteria is called Firmicutes. Along with this abnormal bacterial collection, there is a smoldering low-grade inflammation in the gut wall that may contribute to symptoms. The goal for IBS patients should be to gradually increase the soluble dietary fibers in the diet so as to promote the growth of good bacteria and so suppress the bad ones along with the associated inflammation. IBS patients need to be careful of the amount of soluble fiber they consume. The reason for this is that, while the good colon bacteria thrive on these fibers and produce health benefits, other gas-forming bacteria may generate excessive but harmless gas and subsequent bloating. Thus, soluble plant fibers or a dietary prebiotic supplement should be taken in small initial doses and then gradually increased to tolerance. Fiber and Colon Polyps/Cancer Colon cancer is a major health problem. This disease is most common in Western cultures. It is not seen very often in rural cultures where the diet is mostly plant based. Usually, colon cancer starts out as a colon polyp, a benign mushroom-shaped growth. In time it grows, and in some people it becomes cancerous. Colon cancer is usually always curable if polyps are removed when found or if surgery is performed at an early stage. It is now known that people can inherit the risk of developing colon cancer, but diet is important, too. As noted, there is a very low rate of colon cancer in residents of countries where grains are unprocessed and retain their fiber. It seems that in the [place] world, cancer-containing agents (carcinogens) remain in contact with the colon wall for a longer time and in higher concentrations. So, a large bulky stool may act to dilute these carcinogens by moving them through the bowel more quickly. Less carcinogenic exposure to the colon may mean fewer colon polyps and less cancer. A very current review of the entire world?s literature on the effect of fiber on colon polyps and cancer prevention has shown rather clearly that for every 10 grams of fiber added to the diet, there is a 10% reduction in incidence of colon cancer. So the recommended 30 gram fiber diet would result in a 30% less chance of getting these tumors. There are also substances produced in the colon by the good bacteria that seem to retard certain pre-cancer factors from developing. They are called short-chain fatty acids (SCFA). See above for description of SCFAs. A high fiber diet increases these substances. So, the combination of dietary fiber and the production of short-chain fatty acids have a clear health benefit. Fiber and Diverticulosis Prolonged, vigorous contraction of the colon over a long period of time may result in diverticulosis. This increased pressure causes small and, eventually, larger ballooning pockets to form. These pockets by themselves cause no problem. However, sometimes they become infected (diverticulitis) or even break open (perforate) causing infection or inflammation within the abdomen (peritonitis). A high fiber diet increases the bulk in the stool and thereby reduces the pressure within the colon. By so doing, the formation of pockets may be reduced or possibly even stopped. In the past, many physicians were fearful that seeds as in tomatoes, nuts or berries were harmful and could get inside these pockets and rattle around, causing damage. We now know that this has never been the case and that these foods contain lots of fiber and are actually beneficial for diverticulosis patients. Certain bulking agents such as psyllium are traditional types of bulk producing supplements. Psyllium is a soluble fiber. Combining it with insoluble fiber as in wheat bran or corn bran (no gluten) can enhance this bulking effect even more. A product containing a prebiotic, psyllium and wheat bran is probably a very good combination for bowel regularity. Prebiotin Regularity/Diverticulosis is one such product. Activity:: see above Diet:: see above Discharge Orders Discharge Orders: Discharge Order (Routine); Ordered 01/27/21 Ordered By: Mayra Reilly DS: Diagnosis Discharge Diagnosis (1) Brugada syndrome: Status: Acute (2) Altered bowel habits: Status: Acute (3) Abnormal EKG: Status: Acute (4) Screening for cardiovascular condition: Status: Acute (5) Lower urinary tract symptoms (LUTS): Status: Acute (6) Elevated PSA: Status: Acute
[2021-01-28 10:30] VITALS: BP 115/79; PULSE 61; RESP 14; TEMP 36.1; O2SAT 100
== END 2021-01-28 11:35 | disposition home or self-care (01) ==
PROVIDERS: PCP Physician Assistant; Visit Provider Surgery
PROC: 0DJD8ZZ Inspection of Lower Intestinal Tract, Via Natural or Artificial Opening Endoscopic (ICD-10-PCS; CPT 45378; principal; 2021-01-28 08:00)
DX: R19.4 Change in bowel habit; K57.30 Diverticulosis of large intestine without perforation or abscess without bleeding; D12.5 Benign neoplasm of sigmoid colon; K62.0 Anal polyp
CPT/HCPCS: 45380; 45385; 36415; 80053; 88305; 85025; 93005; 93010

== ENCOUNTER 2021-03-10 03:03 | Outpatient (CLI) | payer MEDICARE, SELFPAY | END 2021-03-10 03:04 | disposition home or self-care (01) | LOC: LBO 03:03 | PROVIDERS: PCP Physician Assistant; Visit Provider Urology | DX: R97.20 Elevated prostate specific antigen [PSA] (principal) | CPT/HCPCS: 36415; 84153 ==

== ENCOUNTER → 2021-03-15 10:05 | Outpatient (BNVA) | payer MEDICARE, MEDICAID, SELFPAY | PROVIDERS: PCP Physician Assistant; Referring Provider Physician Assistant; Visit Provider Urology | DX: R39.89 Other symptoms and signs involving the genitourinary system (principal); R97.20 Elevated prostate specific antigen [PSA]; Z87.442 Personal history of urinary calculi | CPT/HCPCS: 99213; 99214 ==

== ENCOUNTER 2021-06-07 09:08 | Outpatient (CLI) | payer MEDICARE, MEDICAID, SELFPAY ==
[2021-06-08 17:29] LABS: PSA, Diagnostic 19.6 ng/mL (0.0-4.5)
== END 2021-06-07 09:09 | disposition home or self-care (01) ==
LOC: LBO 09:08
PROVIDERS: PCP Physician Assistant; Visit Provider Urology
DX: R97.20 Elevated prostate specific antigen [PSA] (principal)
CPT/HCPCS: 36415; 84153

== ENCOUNTER → 2021-06-14 08:20 | Outpatient (BNVA) | payer MEDICARE, MEDICAID, SELFPAY | PROVIDERS: PCP Physician Assistant; Visit Provider Urology | DX: R39.89 Other symptoms and signs involving the genitourinary system (principal); R97.20 Elevated prostate specific antigen [PSA] | CPT/HCPCS: 99213 ==

== ENCOUNTER 2021-08-23 02:08 | Outpatient (CLI) | payer MEDICARE, MEDICAID, SELFPAY ==
[2021-08-23 23:06] LABS: PSA, Diagnostic 21.9 ng/mL (0.0-4.5)
== END 2021-08-23 02:09 | disposition home or self-care (01) ==
LOC: LBO 02:08
PROVIDERS: PCP Physician Assistant; Visit Provider Urology
DX: R97.20 Elevated prostate specific antigen [PSA] (principal)
CPT/HCPCS: 36415; 84153

== ENCOUNTER → 2021-08-30 08:26 | Outpatient (BNVA) | payer MEDICARE, MEDICAID, SELFPAY | PROVIDERS: PCP Physician Assistant; Visit Provider Urology | DX: R97.20 Elevated prostate specific antigen [PSA] (principal); R39.89 Other symptoms and signs involving the genitourinary system | CPT/HCPCS: 99214 ==

== ENCOUNTER 2021-11-21 02:01 | Outpatient (CLI) | payer MEDICARE, MEDICAID, SELFPAY ==
[2021-11-21 18:20] LABS: PSA, Diagnostic 22.8 ng/mL (<=6.5)
== END 2021-11-21 02:02 | disposition home or self-care (01) ==
LOC: LBO 02:02
PROVIDERS: PCP Physician Assistant; Visit Provider Urology
DX: R97.20 Elevated prostate specific antigen [PSA] (principal)
CPT/HCPCS: 36415; 84153

== ENCOUNTER → 2021-11-29 07:52 | Outpatient (BNVA) | payer MEDICARE, MEDICAID, SELFPAY | PROVIDERS: PCP Physician Assistant; Visit Provider Urology | DX: N40.1 Benign prostatic hyperplasia with lower urinary tract symptoms (principal); R39.15 Urgency of urination; R97.20 Elevated prostate specific antigen [PSA] | CPT/HCPCS: 51798; 81003; 99214 ==

== ENCOUNTER 2022-02-21 03:03 | Outpatient (CLI) | payer MEDICARE, SELFPAY ==
[2022-02-21 19:13] LABS: PSA, Diagnostic 22.5 ng/mL (<=6.5)
== END 2022-02-21 03:04 | disposition home or self-care (01) ==
LOC: LBO 03:03
PROVIDERS: PCP Physician Assistant; Visit Provider Urology
DX: R97.20 Elevated prostate specific antigen [PSA] (principal)
CPT/HCPCS: 36415; 84153

== ENCOUNTER → 2022-02-28 08:01 | Outpatient (BNVA) | payer MEDICARE, MEDICAID, SELFPAY | PROVIDERS: PCP Physician Assistant; Referring Provider Physician Assistant; Visit Provider Urology | DX: N40.0 Benign prostatic hyperplasia without lower urinary tract symptoms (principal); N39.498 Other specified urinary incontinence; R14.0 Abdominal distension (gaseous); R97.20 Elevated prostate specific antigen [PSA] | CPT/HCPCS: 99214 ==

== ENCOUNTER 2022-05-23 03:48 | Outpatient (CLI) | payer MEDICARE, MEDICAID, SELFPAY ==
[2022-05-23 19:56] LABS: PSA, Diagnostic 28.8 ng/mL (<=6.5)
== END 2022-05-23 03:49 | disposition home or self-care (01) ==
LOC: LBO 03:48
PROVIDERS: PCP Physician Assistant; Visit Provider Urology
DX: R97.20 Elevated prostate specific antigen [PSA] (principal)
CPT/HCPCS: 36415; 84153

== ENCOUNTER → 2022-05-30 10:31 | Outpatient (BNVA) | payer MEDICARE, MEDICAID, SELFPAY | PROVIDERS: PCP Physician Assistant; Referring Provider Physician Assistant; Visit Provider Urology | DX: N40.1 Benign prostatic hyperplasia with lower urinary tract symptoms (principal); R35.1 Nocturia; R97.20 Elevated prostate specific antigen [PSA] | CPT/HCPCS: 51798; 99215 ==

== ENCOUNTER 2022-09-08 01:02 | Outpatient (CLI) | payer MEDICARE, MEDICAID, SELFPAY ==
[2022-09-08 20:19] LABS: PSA, Diagnostic 27.3 ng/mL (<=6.5)
== END 2022-09-08 01:03 | disposition home or self-care (01) ==
LOC: LBO 01:02
PROVIDERS: PCP Physician Assistant; Visit Provider Urology
DX: R97.20 Elevated prostate specific antigen [PSA] (principal)
CPT/HCPCS: 36415; 84153

== ENCOUNTER → 2022-09-15 09:49 | Outpatient (BNVA) | payer MEDICARE, MEDICAID, SELFPAY | PROVIDERS: PCP Physician Assistant; Visit Provider Urology | DX: R39.89 Other symptoms and signs involving the genitourinary system (principal); R97.20 Elevated prostate specific antigen [PSA] | CPT/HCPCS: 99213 ==

== ENCOUNTER 2022-12-05 02:44 | Outpatient (CLI) | payer MEDICARE, SELFPAY ==
[2022-12-05 19:57] LABS: PSA, Diagnostic 29.6 ng/mL (<=6.5)
== END 2022-12-05 02:45 | disposition home or self-care (01) ==
LOC: LBO 02:44
PROVIDERS: PCP Physician Assistant; Visit Provider Urology
DX: R97.20 Elevated prostate specific antigen [PSA] (principal)
CPT/HCPCS: 36415; 84153

== ENCOUNTER → 2022-12-12 09:49 | Outpatient (BNVA) | payer MEDICARE, MEDICAID, SELFPAY | PROVIDERS: PCP Physician Assistant; Visit Provider Urology | DX: R39.89 Other symptoms and signs involving the genitourinary system (principal) | CPT/HCPCS: 99213 ==

== ENCOUNTER 2023-03-09 02:30 | Outpatient (CLI) | payer MEDICARE, MEDICAID, SELFPAY ==
[2023-03-09 19:10] LABS: PSA, Diagnostic 35.5 ng/mL (<=6.5)
== END 2023-03-09 02:31 | disposition home or self-care (01) ==
LOC: LBO 02:31
PROVIDERS: PCP Physician Assistant; Visit Provider Urology
DX: R97.20 Elevated prostate specific antigen [PSA] (principal)
CPT/HCPCS: 36415; 84153

== ENCOUNTER → 2023-03-16 10:23 | Outpatient (BNVA) | payer MEDICARE, MEDICAID, SELFPAY | PROVIDERS: PCP Physician Assistant; Visit Provider Urology | DX: R39.89 Other symptoms and signs involving the genitourinary system (principal); R97.20 Elevated prostate specific antigen [PSA] | CPT/HCPCS: 99214 ==

== ENCOUNTER 2023-07-24 03:08 | Outpatient (CLI) | payer MEDICARE, MEDICAID, SELFPAY ==
[2023-07-24 22:31] LABS: PSA, Diagnostic 36.1 ng/mL (<=6.5)
== END 2023-07-24 03:09 | disposition home or self-care (01) ==
LOC: LBO 03:10
PROVIDERS: PCP Physician Assistant; Visit Provider Urology
DX: R97.20 Elevated prostate specific antigen [PSA] (principal)
CPT/HCPCS: 36415; 84153

== ENCOUNTER → 2023-07-31 13:53 | Outpatient (BNVA) | payer MEDICARE, MEDICAID, SELFPAY | PROVIDERS: PCP Physician Assistant; Referring Provider Physician Assistant; Visit Provider Urology | DX: N40.0 Benign prostatic hyperplasia without lower urinary tract symptoms (principal); R39.89 Other symptoms and signs involving the genitourinary system | CPT/HCPCS: 99214 ==

== ENCOUNTER 2023-12-14 02:37 | Outpatient (CLI) | payer MEDICARE, MEDICAID, SELFPAY ==
[2023-12-14 22:39] LABS: PSA, Diagnostic 40.1 ng/mL (<=6.5)
== END 2023-12-14 02:38 | disposition home or self-care (01) ==
LOC: LBO 02:37
PROVIDERS: PCP Physician Assistant; Visit Provider Urology
DX: R97.20 Elevated prostate specific antigen [PSA] (principal)
CPT/HCPCS: 36415; 84153

== ENCOUNTER → 2023-12-21 07:55 | Outpatient (BNVA) | payer MEDICARE, MEDICAID, SELFPAY | PROVIDERS: PCP Physician Assistant; Referring Provider Physician Assistant; Visit Provider Urology ==

== ENCOUNTER 2023-12-21 08:56 | Outpatient (CLI) | payer MEDICARE, MEDICAID, SELFPAY ==
[2023-12-21 09:50] LABS: Estimated GFR 79.97 (mL/min/1.73m2)
== END 2023-12-21 08:57 | disposition home or self-care (01) ==
LOC: LBO 09:02
PROVIDERS: PCP Physician Assistant; Visit Provider Urology
DX: R97.20 Elevated prostate specific antigen [PSA] (principal)
CPT/HCPCS: 36415; 99214; 82565

== ENCOUNTER → 2024-01-29 14:41 | Outpatient (BNVA) | payer MEDICARE, MEDICAID, SELFPAY | PROVIDERS: PCP Physician Assistant; Referring Provider Physician Assistant; Visit Provider Urology | DX: N42.89 Other specified disorders of prostate (principal); R97.20 Elevated prostate specific antigen [PSA] | CPT/HCPCS: 99215 ==

== ENCOUNTER 2024-04-25 02:41 | Outpatient (CLI) | payer MEDICARE, SELFPAY | END 2024-04-25 02:42 | disposition home or self-care (01) | LOC: LBO 02:44 | PROVIDERS: PCP Physician Assistant; Visit Provider Urology | DX: R97.20 Elevated prostate specific antigen [PSA] (principal) | CPT/HCPCS: 36415; 84153 ==

== ENCOUNTER → 2024-05-02 08:20 | Outpatient (BNVA) | payer MEDICARE, SELFPAY | PROVIDERS: PCP Physician Assistant; Referring Provider Physician Assistant; Visit Provider Urology | DX: R97.20 Elevated prostate specific antigen [PSA] (principal); R39.89 Other symptoms and signs involving the genitourinary system | CPT/HCPCS: 99213 ==

== ENCOUNTER 2024-08-26 00:44 | Outpatient (CLI) | payer MEDICARE, SELFPAY ==
[2024-08-26 17:38] LABS: PSA, Diagnostic 42.8 ng/mL (<=6.5)
== END 2024-08-26 00:45 | disposition home or self-care (01) ==
PROVIDERS: PCP Physician Assistant; Visit Provider Urology
DX: R97.20 Elevated prostate specific antigen [PSA] (principal)
CPT/HCPCS: 36415; 84153

== ENCOUNTER → 2024-09-02 15:18 | Outpatient (BNVA) | payer MEDICARE, SELFPAY | PROVIDERS: PCP Physician Assistant; Referring Provider Physician Assistant; Visit Provider Urology | DX: R39.89 Other symptoms and signs involving the genitourinary system (principal); R97.20 Elevated prostate specific antigen [PSA] | CPT/HCPCS: 99214 ==

== ENCOUNTER 2025-01-09 01:09 | Outpatient (CLI) | payer MEDICARE, SELFPAY | END 2025-01-09 01:10 | disposition home or self-care (01) | LOC: LBO 01:10 | PROVIDERS: PCP Physician Assistant; Visit Provider Urology | DX: R97.20 Elevated prostate specific antigen [PSA] (principal) | CPT/HCPCS: 36415; 84153 ==

== ENCOUNTER → 2025-01-16 10:19 | Outpatient (BNVA) | payer MEDICARE, SELFPAY | PROVIDERS: PCP Physician Assistant; Referring Provider Physician Assistant; Visit Provider Urology | DX: R39.89 Other symptoms and signs involving the genitourinary system (principal); R97.20 Elevated prostate specific antigen [PSA]; R35.0 Frequency of micturition | CPT/HCPCS: 99213 ==

== ENCOUNTER 2025-04-24 04:42 | Outpatient (CLI) | payer MEDICARE, SELFPAY ==
[2025-04-24 17:13] LABS: PSA, Diagnostic 52.2 ng/mL (<=6.5)
== END 2025-04-24 04:43 | disposition home or self-care (01) ==
LOC: LBO 04:42
PROVIDERS: PCP Physician Assistant; Visit Provider Urology
DX: R97.20 Elevated prostate specific antigen [PSA] (principal)
CPT/HCPCS: 36415; 84153

== ENCOUNTER → 2025-05-01 10:01 | Outpatient (BNVA) | payer MEDICARE, SELFPAY | PROVIDERS: PCP Physician Assistant; Referring Provider Physician Assistant; Visit Provider Urology | DX: N42.9 Disorder of prostate, unspecified (principal); R97.20 Elevated prostate specific antigen [PSA] | CPT/HCPCS: 99214 ==